=== PATIENT | male | born 1955 | race Caucasian/White ===

== ENCOUNTER 2018-02-03 04:18 | Inpatient (IN) | payer OTHER ==
[~2018-02-03] VITALS: Ht 182.9 cm; Wt 97.5 kg
[~2018-02-03 04:18] MED LIST: BENICAR40 M1 PO; HYDROCHLOROTH12.5 M2 PO; LIPITOR10 M1 PO; SYNTHROID88 MCG PO
[2018-02-03] MEDS ORDERED: TRAMADOL HCL50 M1 PO (07:31)
[2018-02-03] MEDS ORDERED: ASPIRIN EC81 M1 PO (08:56)
[2018-02-03] MEDS ORDERED: MS CONTIN15 M3 PO (08:56)
[2018-02-03] MEDS ORDERED: INDOMETHACIN25 M1 PO (08:56)
[2018-02-03] MEDS ORDERED: COLACE100 M1 PO (08:56)
[2018-02-03] MEDS ORDERED: MIRALAX17 G1 PO (08:56)
[2018-02-03] MEDS ORDERED: DILAUDID2 M1 PO (08:56)
[2018-02-03] MEDS ORDERED: PROTONIX20 M1 PO (08:56)
--- NOTE | 2018-02-03 08:59 | Patient Discharge Instructions ---
Discharge Instructions General Discharge Information You were seen/treated for: Right hip pain You had these procedures: Right total hip arthroplasty Watch for these problems: Fever over 100.4 Drainage from wound Redness and swelling around wound Unable to bear weight on right lower extremity Chest pain or shortness of breath Call Surgeon to remove: Other Do not soak the wound: Yes No bath, but you may shower: Yes Other wound care: Daily dry dressing change Special Instructions: ok to shower in 48hrs Diet Continue normal diet: Yes Activity Activity Limited to: Weight bear as tolerated (with rolling walker) Acute Coronary Syndrome Inclusion Criteria At DC or during hospital stay patient has or had the following: ACS DIAGNOSIS No Discharge Core Measures Meds if any: Prescribed or Continued at Discharge Meds if any: NOT Prescribed or Continued at Discharge Congestive Heart Failure Inclusion Criteria At DC or during hospital stay patient has or had the following: CHF DIAGNOSIS No Discharge Core Measures Meds if any: Prescribed or Continued at Discharge Meds if any: NOT Prescribed or Continued at Discharge Cerebrovascular accident Inclusion Criteria At DC or during hospital stay patient has or had the following: CVA/TIA Diagnosis No Discharge Core Measures Meds if any: Prescribed or Continued at Discharge Meds if any: NOT Prescribed or Continued at Discharge Venous thromboembolism Inclusion Criteria VTE Diagnosis No VTE Type NONE VTE Confirmed by (Test) NONE Discharge Core Measures - Per Current guidelines, there needs to be overlap - treatment for the first 5 days of Warfarin therapy. - If discharged on Warfarin prior to 5 days of - overlap therapy, the patient will need to be - assessed for post discharge needs including - *Post discharge parental anticoagulation - *Warfarin and/or parental anticoagulation education - *Follow up date to check INR post discharge At least 5 days overlap therapy as Inpatient No Meds if any: Prescribed or Continued at Discharge Note: Overlap Therapy is Warfarin and Anticoagulant Meds if any: NOT Prescribed or Continued at Discharge
--- NOTE | 2018-02-03 09:00 | Admission Core Measures ---
Acute Coronary Syndrome (CM) ACS Core Measures Acute Coronary Syndrome Diagnosis No Congestive Heart Failure (NEW) CHF Core Measures Congestive Heart Failure Diagnosis No Cerebrovascular Accident CVA Core Measures CVA/TIA Diagnosis No Venous Thromboembolism VTE Core Cydney (View Protocol) VTE Risk Factors Surgery No Mechanical VTE Prophylaxis d/t N/A MechProphylax Ordered No VTE Pharm Prophylaxis d/t NA PharmProphylax ordered Problem List As ranked by this Provider includes Assessment & Plan 1. Unilateral primary osteoarthritis, right hip HOME MEDS Home Med List Aspirin (Ecotrin*) 81 MG TABLET.DR 1 TAB PO BID DVT PPX Atorvastatin Calcium (Lipitor) 10 MG TABLET 0.5 TAB PO DAILY CHOLESTEROL ( Reported) Docusate Sodium (Colace) 100 MG CAPSULE 1 CAP PO BID STOOL SOFTENER Hydrochlorothiazide 12.5 MG TABLET 1 TAB PO DAILY DIURETIC (Reported) Hydromorphone HCl (Dilaudid) 2 MG TABLET 1-2 TAB PO Q4-6 PRN PRN PAIN Indomethacin 25 MG CAPSULE 1 CAP PO TID HO PPX Levothyroxine Sodium (Synthroid) 88 MCG TABLET 1 TAB PO DAILY THYROID ( Reported) Morphine Sulfate (Ms Contin) 15 MG TABLET.ER 1 TAB PO BID PAIN Olmesartan Medoxomil (Benicar) 40 MG TABLET 1 TAB PO DAILY BP (Reported) Pantoprazole Sodium (Protonix) 20 MG TABLET.DR 1 TAB PO DAILY GI PROTECTION Polyethylene Glycol 3350 (Miralax) 17 GRAM POWD.PACK 1 PAC PO DAILY CONSTIPATION Tramadol HCl 50 MG TABLET 2 TAB PO 2X DAILY PRN pain (Reported)
--- NOTE | 2018-02-03 09:02 | Surg Short-stay <48hrs Dis Sum ---
Visit Information Visit Dates Admission Date: 02/03/18 Discharge Date: 02/03/2018 Surgical Short Stay DC Summary Admission Diagnosis: Right hip osteoarthritis Final Diagnosis: Same Procedure(s): Right total hip arthroplasty Summary/Significant Findings: Patient tolerated the procedure well. Postoperatively he was tolerating regular diet, voiding spontaneously, pain was well managed, he was ambulating with physical therapy using a rolling walker and was cleared for discharge to home with health services Condition at Discharge: Good Discharge Disposition: home health services Discharge instructions provided to patient/family: Yes Post discharge follow-up plan: Patient to follow-up with Dr. Flower in 6 weeks. He was given instructions to call sooner with any questions or concerns
--- NOTE | 2018-02-03 11:56 | PN- Orthopedic ---
Subjective Subjective: POC Pt recovering well in PACU, denies paresthesias, but doesnt have full return of motor function yet. pain 2/10, denies nausea. No CP/SOB. has not voided or ambulated yet Objective Vital Signs and I&Os VSS, afebrile Physical Exam: gen- NAD resp- clear cardiac-RRR abd- soft, NT ext- Assessment/Plan Assessment/Plan 62yo M with hxhtn, gerd, jaki with cpap, hypothyroidism and hld now here SP R BARB POD0. stable pain management reg diet ivf dvt ppx- alps and asa pt- wbat with rw reg home meds dc planning- likely home today pending PT clearence Core Measures Venous Thromboembolism VTE Risk Factors Surgery No Mechanical VTE Prophylaxis d/t N/A MechProphylax Ordered No VTE Pharm Prophylaxis d/t NA PharmProphylax ordered
--- NOTE | 2018-02-03 12:19 | RADIOLOGY REPORT ---
EXAMINATION: XR HIP, RIGHT CLINICAL INFORMATION: Right total hip arthroplasty COMPARISON: None TECHNIQUE: Portable AP and crosstable lateral view of the right hip FINDINGS: There is a right total hip arthroplasty noted with the components in usual position. No periprosthetic fracture or suspicious area of lucency. There is air\E\gas in the soft tissues compatible with the postoperative state. IMPRESSION: Right total hip arthroplasty without complication by x-ray.
[2018-02-03 13:10] VITALS: BP 110/70
[2018-02-03 15:20] VITALS: BP 122/64
--- NOTE | 2018-02-03 15:37 | Operative Report ---
Operative/Inv Procedure Report Surgery Date: 02/03/18 Name of Procedure: Right total hip replacement Pre-Operative Diagnosis: Primary right hip DJD Post-Operative Diagnosis: Same Estimated Blood Loss: 250 Surgeon/Alarm Service Technician: Servando HYMAN,George Fleming Anesthesia: block Operative/Procedure Note Note: Description of Procedure: The patient was taken to the operating room and positively identified. After induction of spinal anesthesia and administration of appropriate pre-operative antibiotics, the patient was positioned supine on the operating room table and all bony prominences were well padded. After performing a surgical timeout, the right lower extremity was prepped and draped in the usual sterile fashion. A direct anterior approach was made to the right hip. The incision was carried sharply through superficial soft tissues to the level of the fascia. Meticulous hemostasis was maintained with Bovie electocautery. The fascia over the tensor fascia siobhan muscle was opened sharply and the interval between the TFL and the sartorius was entered bluntly taking care to stay lateral to the lateral femoral cutaneous nerve. Retractors were placed around the femoral neck and the pericapsular fat was identified. The ascending branches of the lateral femoral circumflex vessels were identified and carefully coagulated. The pericapsular fat and anterior capsule were then resected. A napkin ring osteotomy was performed and the femoral head was removed without difficulty. Attention was then turned to the acetabulum. After appropriate placement of retractors, the acetabulum was exposed. Soft tissue was cleaned from the acetabular margin and notch. Overhanging osteophytes were removed and the teardrop was exposed. The acetabulum was then sequentially reamed to accept a 60 mm Ross Tritanium hemispherical solid shell. This was impacted into place in the appropriate position and fitted with a 36 mm Trident X3 zero degree polyethylene insert. Attention was then turned to the femur. After performing the appropriate ligament releases, the proximal femur was exposed. It was then sequentially broached to accept a size 9 Ross secure fit advanced 127 neck angle stem. This was trialed for leg length and stability. The trial component was removed and the final component was impacted into place. The trunnion was carefully cleaned and fit with a 36 mm, +2.5 Biolox delta ceramic femoral head. The hip was reduced and put through a full range of motion and found to be stable. The articular space was then irrigated with sterile saline. The periarticular soft tissues were infilitrated with Marcaine. The fascial layer was closed with interrupted #1 vicryl suture and the skin was re-approximated with interrupted 2 -0 vicryl. The skin was closed with a running 3-0 V-Lock suture. Steri-strips and a sterile dressing were applied. The patient was awakened and taken to the recovery room in satisfactory condition.
== END 2018-02-03 16:22 | disposition home health service (06) | DRG 470 ==
LOC: SDA 04:18 → ENRESERV 12:10 → ENTRNSPT 12:26 → EDTRNSPTSTS 13:00 → EDTRNSPT 13:01 → 2NB 13:07 → CMPTRNSPT 13:40 → ENTRNSPT 15:45 → EDTRNSPTSTS 16:21 → 2NB 16:22 → CMPTRNSPT 17:10
PROC: 0SR904A Replacement of Right Hip Joint with Ceramic on Polyethylene Synthetic Substitute, Uncemented, Open Approach (ICD-10-PCS; principal; 2018-02-03)
DX: M16.11 Unilateral primary osteoarthritis, right hip (principal); K21.9 Gastro-esophageal reflux disease without esophagitis; G47.33 Obstructive sleep apnea (adult) (pediatric); E78.5 Hyperlipidemia, unspecified; I10 Essential (primary) hypertension; E05.00 Thyrotoxicosis with diffuse goiter without thyrotoxic crisis or storm; Z98.1 Arthrodesis status
CPT/HCPCS: 2NBSP; 73502-RT; 97116-GO; 97161-GP; 97530-GO; J0131; J0690; J0735; J3490; J7042